=== PATIENT | female | born 1950 | race Caucasian/White ===

== ENCOUNTER → 2016-10-14 | Outpatient (CLI) | payer OTHER ==
[~2016-10-14] MED LIST: CALCIUM 600 +1 EA10 PO; METFORMIN HCL500 MG PO; NORCO 5-325 TA1 EACH PO; PRILOSEC40 MG PO; VITAMIN E400 UNIT PO; ZIAC 10/6.25 MG10 MG PO; ZOCOR40 MG PO; [UNRECOGNIZED DRUG - OTHER]
== END ==
LOC: RAD 01:03
DX: Z12.31 Encounter for screening mammogram for malignant neoplasm of breast (principal)

== ENCOUNTER → 2016-10-30 | Outpatient (CLI) | payer OTHER | LOC: RAD 10:43 | DX: M17.12 Unilateral primary osteoarthritis, left knee (principal) ==

== ENCOUNTER → 2017-02-04 | Outpatient (CLI) | payer OTHER | LOC: RAD 12:53 | DX: S42.011A Anterior displaced fracture of sternal end of right clavicle, initial encounter for closed fracture (principal); X58.XXXA Exposure to other specified factors, initial encounter; Y93.89 Activity, other specified; Y92.89 Other specified places as the place of occurrence of the external cause; Y99.8 Other external cause status ==

== ENCOUNTER → 2017-11-26 | Outpatient (CLI) | payer OTHER | LOC: RAD 14:34 | DX: Z12.31 Encounter for screening mammogram for malignant neoplasm of breast (principal) ==

== ENCOUNTER → 2018-12-11 | Outpatient (CLI) | payer OTHER | LOC: RAD 10:20 | DX: Z12.31 Encounter for screening mammogram for malignant neoplasm of breast (principal) ==

== ENCOUNTER → 2018-12-14 | Outpatient (CLI) | payer OTHER | LOC: ULTRA 12:22 | DX: I65.23 Occlusion and stenosis of bilateral carotid arteries (principal); R93.0 Abnormal findings on diagnostic imaging of skull and head, not elsewhere classified ==

== ENCOUNTER → 2019-11-16 | Outpatient (CLI) | payer OTHER ==
[2019-11-16 09:02] LABS: CREATININE 1.4 mg/dL (0.6-1.0)
== END ==
LOC: CAT 07:18
PROVIDERS: ATTEND Family Medicine
DX: K57.30 Diverticulosis of large intestine without perforation or abscess without bleeding (principal); R97.0 Elevated carcinoembryonic antigen [CEA]; I25.10 Atherosclerotic heart disease of native coronary artery without angina pectoris; K76.89 Other specified diseases of liver; K44.9 Diaphragmatic hernia without obstruction or gangrene; R19.5 Other fecal abnormalities; K40.90 Unilateral inguinal hernia, without obstruction or gangrene, not specified as recurrent; M41.86 Other forms of scoliosis, lumbar region; M25.78 Osteophyte, vertebrae; J98.4 Other disorders of lung

== ENCOUNTER → 2019-12-20 | Outpatient (CLI) | payer OTHER | LOC: RAD 11:19 | PROVIDERS: ATTEND Family Medicine | DX: Z12.31 Encounter for screening mammogram for malignant neoplasm of breast (principal) ==

== ENCOUNTER → 2020-06-21 | Outpatient (CLI) | payer OTHER | LOC: CAT 10:00 → EDSTATUS 12:45 → CAT 12:50 | PROVIDERS: ATTEND Family Medicine | DX: N28.1 Cyst of kidney, acquired (principal); R97.0 Elevated carcinoembryonic antigen [CEA]; I70.0 Atherosclerosis of aorta; J84.10 Pulmonary fibrosis, unspecified; K44.9 Diaphragmatic hernia without obstruction or gangrene; K57.30 Diverticulosis of large intestine without perforation or abscess without bleeding; J98.4 Other disorders of lung; I25.10 Atherosclerotic heart disease of native coronary artery without angina pectoris ==

== ENCOUNTER → 2020-07-31 | Outpatient (CLI) | payer OTHER | LOC: PET 07:35 | PROVIDERS: ATTEND Family Medicine | DX: E04.9 Nontoxic goiter, unspecified (principal); K40.90 Unilateral inguinal hernia, without obstruction or gangrene, not specified as recurrent; K44.9 Diaphragmatic hernia without obstruction or gangrene; R97.0 Elevated carcinoembryonic antigen [CEA] ==

== ENCOUNTER → 2020-10-26 | Outpatient (CLI) | payer OTHER | LOC: ULTRA 13:42 | PROVIDERS: ATTEND Family Medicine | DX: E04.2 Nontoxic multinodular goiter (principal) ==

== ENCOUNTER → 2020-11-13 | Outpatient (CLI) | payer OTHER ==
--- NOTE | 2020-11-20 07:06 | PATH ---
[facility] [place] [address] PATHOLOGY RPT PROCEDURE Name: MAXI MORENO Room #: REG [facility].#: [id number] Admission: 11/13/20 Date of : 46 Discharge: Report #: [id number] Path Case #: [id number] Note [facility] Accession Number: [id number] TESTS RESULT FLAG UNITS REF RANGE LAB Clinician Provided Cytology Information No. of containers..01 Other (Miscellaneous) Source: LEFT THRYOID DIAGNOSIS: LEFT THRYOID, FINE NEEDLE ASPIRATION NEGATIVE FOR MALIGNANT EPITHELIAL CELLS. BETHESDA CATEGORY II. SPECIMEN CONSISTS OF ABUNDANT GROUPS OF FOLLICULAR CELLS, HEMOSIDERIN-LADEN MACROPHAGES, COLLOID AND BLOOD. THE PATTERN IS MOST COMPATIBLE WITH ADENOMATOID NODULE. COLLOID IS PRESENT. NEGATIVE FOR NUCLEAR FEATURES OF PAPILLARY THYROID CARCINOMA. Comment: Examination shows abundant groups of macrofollicles, few with Hurthle cell changes, watery colloid and rare macrophages. Findings are compatible with an adenomatoid nodule. Differential diagnosis includes follicular adenoma including Hurthle cell adenoma due to the nature of the sample. Nuclear features of papillary thyroid carcinoma are not identified. Please note sample may not be entirely sales representative printing; correlate clinically and follow-up as indicated. Dr. Belgica Johnson has seen this case and concurs with my interpretation. Pathologist ICD10: 02 E04.1 Signed out by: Linda Cristina MD, Pathologist NPI- [id number] Performed by: Baljinder Parker, Life Insurance Agent ([facility]) Gross description: 01 25ML, CLEAR RED, 2FX 2AD /LCS 11/15/2020 1808 Local FLAG LEGEND: L-Low Normal,H-High Normal,LL-Alert Low,HH-Alert High <-Panic Low,>-Panic High,A-Abnormal,AA-Critical Abnormal Performed at: [facility] [address] [place] [address] Tristan Anders MD, 02 [facility] [address] [place] [address] PATHOLOGY RPT PROCEDURE Name: MAXI MORENO Room #: REG THOMAS Hernández#: [id number] Admission: 11/13/20 Date of : 46 Discharge: Report #: [id number] Path Case #: [id number] [address], [place] [address] Linda Cristina MD, Specimen Comment: [id number] Performed at: [address], [place], [place] [id number] MD Tristan Anders MD Phone: [phone]
--- NOTE | 2020-11-20 07:06 | PATH ---
[facility] [place] [address] [place] [address] PATHOLOGY RPT PROCEDURE Name: MAXI MORENO Room #: REG [facility]#: [id number] Admission: 11/13/20 Date of : 46 Discharge: Report #: [id number] Path Case #: [id number] Note [facility] Accession Number: [id number] TESTS RESULT FLAG UNITS REF RANGE LAB Clinician Provided Cytology Information No. of containers..01 Other (Miscellaneous) Source: NECK LYMPH NODE DIAGNOSIS: LEFT NECK LYMPH NODE, FINE NEEDLE ASPIRATION NEGATIVE FOR MALIGNANT EPITHELIAL CELLS. REACTIVE CELLULAR CHANGES NOTED. THIS INTERPRETATION INCLUDES EVALUATION OF A CELL BLOCK. MIXTURE OF SMALL AND LARGE LYMPHOCYTES, MACROPHAGES ALONG WITH BLOOD. Comment: Portion of this sample was sent in RPMI; flowcytometric analysis is pending at the time of this report. The results will be issued in an addendum to follow. Examination shows a mixture of small and large lymphocytes. Atypical large lymphocytes, binucleate cells or definitive Aman-Jacinto cells are not identified. Please note; however, sample may not be entirely pharmaceutical specialty representative. Recommend excision for persistent lymphadenopathy for a definite diagnosis. Correlate clinically and follow-up as indicated. Dr. Belgica Johnson has seen this case and concurs with my diagnosis. Pathologist ICD10: 02 E04.1 Signed out by: Linda Cristina MD, Pathologist NPI- [id number] Performed by: Alethea Smith, Lead Generation Specialist ([facility]) Gross description: 01 20ML, CLEAR COLORLESS, 2FX 2AD /LCS 11/15/2020 1820 Local FLAG LEGEND: L-Low Normal,H-High Normal,LL-Alert Low,HH-Alert High <-Panic Low,>-Panic High,A-Abnormal,AA-Critical Abnormal Performed at: 01 [place] [facility] [address] [place] [address] [address] [place] [address] Tristan Anders MD, 02 [facility] [address] [address] PATHOLOGY RPT PROCEDURE Name: MAXI MORENO Room #: REG [facility]#: [id number] Admission: 11/13/20 Date of : 46 Discharge: Report #: [id number] Path Case #: [id number] Linda Cristina MD, Specimen Comment: [id number] Performed at: [facility] [place] [address] [place] [address] [address], [place], [place] [id number] MD Tristan Anders MD Phone: [phone]
== END | disposition home or self-care (01) ==
LOC: ULTRA 10:40
PROVIDERS: ATTEND Family Medicine
DX: E04.1 Nontoxic single thyroid nodule (principal); R59.0 Localized enlarged lymph nodes; I10 Essential (primary) hypertension; E78.00 Pure hypercholesterolemia, unspecified; Z98.890 Other specified postprocedural states; Z90.710 Acquired absence of both cervix and uterus; Z79.899 Other long term (current) drug therapy; Z88.8 Allergy status to other drugs, medicaments and biological substances

== ENCOUNTER → 2021-01-04 | Outpatient (CLI) | payer OTHER | LOC: BC 09:09 | PROVIDERS: ATTEND Family Medicine | DX: Z12.31 Encounter for screening mammogram for malignant neoplasm of breast (principal); L84 Corns and callosities ==

== ENCOUNTER → 2021-01-10 | Outpatient (CLI) | payer OTHER | LOC: RAD 09:07 | PROVIDERS: ATTEND Family Medicine | DX: R92.1 Mammographic calcification found on diagnostic imaging of breast (principal) ==

== ENCOUNTER 2021-02-23 20:14 | Emergency (ER) | payer OTHER ==
[~2021-02-23] VITALS: Ht 157.5 cm; Wt 68.0 kg
[2021-02-23 21:14] LABS: HEMOGLOBIN 13.5 gm/dL (12.0-15.0); MCH 26.3 pg (26.0-34.0); MCHC 33.1 g/dL (28.0-37.0); MCV 79.5 fL (80.0-100.0); RBC 5.15 mil/uL (4.20-5.00); RDW 14.6 % (10.5-14.5); WBC 5.9 thou/uL (4.0-11.0)
[2021-02-23 21:21] LABS: CALCIUM 9.5 mg/dL (8.5-10.1); CREATININE 1.2 mg/dL (0.6-1.0); POTASSIUM 3.5 mmol/L (3.5-5.1)
[2021-02-23 21:45] VITALS: BP 151/44
== END 2021-02-23 21:45 | disposition home or self-care (01) ==
LOC: ER 20:14
PROVIDERS: Emergency Medicine
DX: M71.21 Synovial cyst of popliteal space [Baker], right knee (principal); M79.604 Pain in right leg; I10 Essential (primary) hypertension; E78.00 Pure hypercholesterolemia, unspecified; Z90.710 Acquired absence of both cervix and uterus; Z79.899 Other long term (current) drug therapy; Z88.5 Allergy status to narcotic agent